=== PATIENT | female | born 1955 | race African-American/Black ===

== ENCOUNTER → 2017-04-10 | Outpatient (CLI) | payer MEDICARE, OTHER ==
[2015-08-05 13:36] VITALS: BP 154/83
[~2017-04-10] MED LIST: CYAN25002 SL; FERR-36 PO; GABA-585 PO; LEVO50TA5 PO; LISI-338 PO; MECL12.5 PO; METF500T4 PO; SIMV20TA3 PO; TRAM50TA PO; WARF5TAB7 PO
--- NOTE | 2017-04-10 13:04 | RAD ---
DATE: 04/10/2017 EXAM: DIGITAL SCREEN BILAT W/CAD HISTORY: Asymptomatic screening mammogram COMPARISON: Prior mammograms from 09/01/2015, 02/14/2014 This study was interpreted with the benefit of Computerized Aided Detection (CAD). The breast parenchyma is primarily fatty replaced. Breast parenchyma level density A. FINDINGS: Bilateral CC and MLO views of the breasts were performed. Right breast: There are no suspicious microcalcifications, masses or areas of architectural distortion. Left breast: There are no suspicious microcalcifications, masses or areas of architectural distortion. Findings are stable from prior mammogram. IMPRESSION: Negative bilateral mammogram. BI-RADS CATEGORY: 1 NEGATIVE RECOMMENDED FOLLOW-UP: 12M 12 MONTH FOLLOW-UP PQRS compliance statement: Patient information was entered into a reminder system with a target due date 04/10/2018 for the next mammogram. Mammography is a sensitive method for finding small breast cancers, but it does not detect them all and is not a substitute for careful clinical examination. A negative mammogram does not negate a clinically suspicious finding and should not result in delay in biopsying a clinically suspicious abnormality. "Our facility is accredited by the [employer] Mammography Program."
== END | disposition home or self-care (01) ==
LOC: MAMMO 10:41
PROVIDERS: ATTEND Physician Assistant Surgical
DX: Z12.31 Encounter for screening mammogram for malignant neoplasm of breast (principal)
CPT/HCPCS: G0202; 77067

== ENCOUNTER → 2017-07-07 | Day surgery (SDC) | payer OTHER ==
[~2017-07-07] MED LIST changes: +AMLO5TAB2 PO; +IV RINGERS,LACTATED 1000ML 1,000 ML IV SCH; +LIDOCAINE 1% PF 2 ML VIAL. ID PRN; +LIDOCAINE 2% PF Vial for OR 5 ML VIAL. ONE; +ONDANSETRON PF 4 MG/2 ML VIAL. IV PRN; +PROCHLORPERAZINE 10 MG/2 ML VIAL. IV PRN; +PROPOFOL 20 ML IV ONE; +ePHEDrine PF IN SALINE 50 MG/5 ML DISP.SYRIN IV ONE; +fentaNYL PF VIAL 100 MCG/2 ML VIAL IV PRN
[2017-07-07 17:01] VITALS: BP 105/57
--- NOTE | 2017-07-09 11:53 | PATHOLOGY ---
PATHOLOGY REPORT * * * * * * * * FINAL DIAGNOSIS: Colon biopsies, ascending colon polyps: - Consistent with hyperplastic polyps/prominent folds, with a few small mucosal-associated lymphoid aggregates. COMMENT: There are no adenomatous changes or evidence of malignancy. (JPM:pit; 07/09/2017) REPORT ELECTRONICALLY SIGNED BY: Leighton Chavira M.D. DATE/TIME: 07/09/2017 11:52 * * * * * * * * GROSS PATHOLOGY: Received in formalin labeled "Anca Perez, ascending colon polyps," are multiple segment of christensen soft tissue measuring up to 0.3 cm in maximum dimension. The specimen is submitted entirely in cassette A1. (TSD; 07/08/2017) INITIAL CPT CODE(S): A; 56582 Professional services performed by [facility] [place] [address] Technical services performed by [facility] at [address] [place] [address], [place] [address]. SPECIMEN(S) RECEIVED: A.Ascending colon polyps CLINICAL HISTORY: [facility] PATIENT: ANCA PEREZ /AGE: 412/15/1955 (Age: 61) PATIENT #: [id number] ALT CASE #: SPECIMEN COLLECTION DATE: 07/07/2017 SPECIMEN RECEIVED DATE: 07/08/2017 [facility] - [address] [place] [address] - PHONE: [phone] * * * END OF REPORT * * *
== END | disposition home or self-care (01) ==
LOC: ENDOS 15:00
PROVIDERS: ATTEND Internal Medicine Gastroenterology
DX: Z12.11 Encounter for screening for malignant neoplasm of colon (principal); D12.2 Benign neoplasm of ascending colon; K64.0 First degree hemorrhoids; E78.00 Pure hypercholesterolemia, unspecified; I10 Essential (primary) hypertension; F41.9 Anxiety disorder, unspecified; F32.9 Major depressive disorder, single episode, unspecified; Z98.890 Other specified postprocedural states; Z86.718 Personal history of other venous thrombosis and embolism; Z87.39 Personal history of other diseases of the musculoskeletal system and connective tissue; Z90.710 Acquired absence of both cervix and uterus; Z86.39 Personal history of other endocrine, nutritional and metabolic disease; Z88.6 Allergy status to analgesic agent; Z88.8 Allergy status to other drugs, medicaments and biological substances
CPT/HCPCS: 45380; 88305; J2704; J2001

== ENCOUNTER → 2017-10-21 | Outpatient (CLI) | payer OTHER | END | disposition home or self-care (01) | LOC: CT 15:14 | DX: R91.1 Solitary pulmonary nodule (principal); R91.8 Other nonspecific abnormal finding of lung field | CPT/HCPCS: 71250 ==